=== PATIENT | female | born 2000 | race Caucasian/White ===

== ENCOUNTER 2023-11-10 10:34 | Emergency (ER) | payer SELFPAY ==
[2023-11-10 12:23] LABS: SARS-CoV-2 NAA Rapid Test Not Detected (NotDetected)
== END 2023-11-10 12:38 | disposition home or self-care (01) ==
LOC: CSHERS 10:34
DX: J06.9 Acute upper respiratory infection, unspecified (principal); F17.200 Nicotine dependence, unspecified, uncomplicated
CPT/HCPCS: 87081; 87430; 99283

== ENCOUNTER 2024-09-02 19:01 | Day surgery (SDC) | payer MEDICAID, OTHER ==
[2024-09-02 19:23] VITALS: BMI 32.5
[2024-09-02] MEDS ORDERED: hydrALAZINE 20 MG/ML VIAL SLOW IVP PRN (21:20)
== END 2024-09-02 22:15 | disposition home or self-care (01) ==
LOC: CSHLD/OP 19:01
PROVIDERS: ATTEND Family Medicine
DX: O47.1 False labor at or after 37 completed weeks of gestation (principal); O98.513 Other viral diseases complicating pregnancy, third trimester; B00.9 Herpesviral infection, unspecified; O98.813 Other maternal infectious and parasitic diseases complicating pregnancy, third trimester; B37.31 Acute candidiasis of vulva and vagina; B96.89 Other specified bacterial agents as the cause of diseases classified elsewhere; O23.593 Infection of other part of genital tract in pregnancy, third trimester; N89.8 Other specified noninflammatory disorders of vagina; Z79.82 Long term (current) use of aspirin; Z79.899 Other long term (current) drug therapy; Z3A.39 39 weeks gestation of pregnancy
CPT/HCPCS: 87480; 87510; 87660

== ENCOUNTER 2024-09-03 15:28 | Inpatient (IN) | payer MEDICAID, OTHER ==
[2024-09-03] MEDS ORDERED: hydrALAZINE 20 MG/ML VIAL SLOW IVP PRN ×3 (15:42→21:01)
[2024-09-03 16:25] VITALS: BMI 32.5
[2024-09-03] MEDS: CEFAZOLIN 2 GM VIAL ONE (16:44)
[2024-09-03 16:45] LABS: #Basophils 0.02 10x3/uL (0.0-0.2); #Eosinophils 0.01 10x3/uL (0.0-0.5); #Monocytes 1.41 10x3/uL (0.0-1.1); #Neutrophils 15.16 10x3/uL (1.5-8.4); %Basophils 0.1 % (0.0-2.0); %Eosinophils 0.1 % (0.0-6.0); %Lymphocytes 9.8 % (18.0-47.0); %Monocytes 7.6 % (0.0-10.0); %Neutrophils 81.5 % (40.0-75.0); Hematocrit 39.3 % (34.9-44.5); Hemoglobin 13.1 g/dL (12.0-15.5); Mean Corpuscular HGB CONC 33.3 g/dL (32.0-36.0); Mean Corpuscular Hemoglobin 28.5 pg (27.0-33.0); Mean Corpuscular Volume 85.4 fL (81.6-98.3); Mean Platelet Volume 8.2 fL (7.4-10.4); Platelet Count 342 10x3/uL (150-450); RBC Distribution Width 13.5 % (11.5-14.5); White Blood Cell (WBC) Count 18.6 10x3/uL (3.5-10.5)
[2024-09-03] MEDS ORDERED: Ondansetron PF 4 MG/2 ML Vial IVP PRN ×2 (16:45→17:52)
[2024-09-03] MEDS: Azithromycin 500 MG VIAL ONE (16:45)
[2024-09-03] MEDS ORDERED: Diphenoxylate HCl/Atropine Tablet PO PRN (16:45)
[2024-09-03] MEDS ORDERED: Famotidine/PF 20 mg/2ml Vial SLOW IVP PRN (16:45)
[2024-09-03] MEDS ORDERED: Oxytocin 30 units/NS 500 ML 500 ML IV SCH ×2 (16:45→21:01)
[2024-09-03] MEDS ORDERED: Bicitra 30 ML UDCUP PO PRN (16:45)
[2024-09-03] MEDS ORDERED: Tranexamic Acid 1,000 MG/10 ML VIAL IVP PRN (16:45)
[2024-09-03] MEDS ORDERED: Acetaminophen 500 MG TAB PO PRN (16:45)
[2024-09-03] MEDS ORDERED: Carboprost 250 MCG/ML AMP IM PRN (16:45)
[2024-09-03] MEDS ORDERED: Promethazine HCl 25 MG/ML VIAL IM PRN ×3 (16:45→17:52)
[2024-09-03] MEDS ORDERED: Misoprostol 200 MCG TAB PR PRN ×2 (16:45→21:01)
[2024-09-03] MEDS ORDERED: Methylergonovine 0.2 MG/ML VIAL IM PRN ×2 (16:45→21:01)
[2024-09-03] MEDS ORDERED: CEFAZOLIN 2 GM in Sodium Chloride 0.9% 100 ML IVPB SCH (16:45)
[2024-09-03] MEDS ORDERED: fentaNYL 50 mcg/mL 1 mL Vial SLOW IVP PRN (16:45)
[2024-09-03] MEDS ORDERED: Lactated Ringer's 1,000 ML IV SCH (16:45)
[2024-09-03] MEDS ORDERED: Azithromycin 500 MG in Sodium Chloride 0.9% 250 ML 250 ML IVPB SCH (17:00)
[2024-09-03 17:11] LABS: INR-International Normal Ratio 0.9; PTT 26.1 sec (22.0-33.0); Prothrombin Time 9.8 sec (9.5-12.1)
[2024-09-03 17:22] LABS: Hematocrit 38.2 % (34.9-44.5); Hemoglobin 12.5 g/dL (12.0-15.5); Mean Corpuscular HGB CONC 32.7 g/dL (32.0-36.0); Mean Corpuscular Hemoglobin 28.5 pg (27.0-33.0); Mean Platelet Volume 8.3 fL (7.4-10.4); Platelet Count 319 10x3/uL (150-450); RBC Distribution Width 13.6 % (11.5-14.5); Red Blood Cell (RBC) Count 4.39 10x6/uL (3.90-5.03); White Blood Cell (WBC) Count 19.6 10x3/uL (3.5-10.5)
[2024-09-03 17:32] LABS: Syphilis Antibody Nonreactive (Nonreactive); Syphilis Antibody Index 0.07 S/CO (<1.00 Non-Reactive)
[2024-09-03 17:37] LABS: HBsAg Index 0.19 S/CO (0-0.99); Hep B Surf Ag - L&D Non-Reactive S/CO (NonReactive)
[2024-09-03] MEDS ORDERED: Naloxone HCl 0.4 mg/ml Vial IV PRN (17:52)
[2024-09-03] MEDS ORDERED: Naloxone HCl 0.4 mg/ml Vial IVP PRN ×2 (17:52)
[2024-09-03] MEDS ORDERED: HYDROmorphone 2 MG/ML VIAL SLOW IVP PRN (17:52)
[2024-09-03] MEDS ORDERED: Moisturizing Cream (Eucerin) 113 GM JAR TOP PRN (17:52)
[2024-09-03] MEDS ORDERED: Ondansetron HCl/PF 4 MG/2 ML Vial IVP PRN (17:52)
[2024-09-03] MEDS ORDERED: Communication Order-Pharmacy FS SCH (18:00)
[2024-09-03] MEDS ORDERED: Acetaminophen 325 MG TAB PO PRN (21:01)
[2024-09-03] MEDS ORDERED: Simethicone Chewable 80 MG TAB PO PRN (21:01)
[2024-09-03] MEDS: Ketorolac Tromethamine 30 MG (1 mL) VIAL IVP PRN (21:22)
[2024-09-03] MEDS: CEFAZOLIN 2 GM in Sodium Chloride 0.9% 100 ML IVPB SCH (21:23)
[2024-09-03] MEDS: Lactated Ringer's 1,000 ML IV SCH (21:33)
[2024-09-03] MEDS: Dexmedetomidine 200 MCG/2 ML VIAL ONE (22:01)
[2024-09-03] MEDS: ePHEDrine Sulfate 50 MG/10 ML VIAL ONE (22:01)
[2024-09-03] MEDS: Morphine PF 10 MG/10 ML VIAL ONE (22:01)
[2024-09-03] MEDS: Tranexamic Acid 1,000 MG/10 ML VIAL ONE (22:02)
[2024-09-03] MEDS: PHENYLEPHRINE-NS 100 MCG/ML 10 ML SYRINGE ONE (22:02)
[2024-09-03] MEDS: Ferrous Sulfate 325 MG TAB PO SCH (22:02)
[2024-09-03] MEDS: Famotidine/PF 20 mg/2ml Vial ONE (22:02)
[2024-09-03] MEDS: Ondansetron PF 4 MG/2 ML Vial ONE (22:02)
[2024-09-03] MEDS: Docusate 100 MG CAP PO SCH (22:02)
[2024-09-03] MEDS: Oxytocin 10 UNITS/ML VIAL ONE (22:02)
[2024-09-03] MEDS: diphenhydrAMINE 50 MG/ML VIAL IVP PRN (22:59)
[2024-09-04 04:24] LABS: Hematocrit 31.2 % (34.9-44.5); Hemoglobin 10.1 g/dL (12.0-15.5); Mean Corpuscular HGB CONC 32.4 g/dL (32.0-36.0); Mean Corpuscular Hemoglobin 28.5 pg (27.0-33.0); Mean Corpuscular Volume 87.9 fL (81.6-98.3); Mean Platelet Volume 8.5 fL (7.4-10.4); Platelet Count 281 10x3/uL (150-450); RBC Distribution Width 13.6 % (11.5-14.5); Red Blood Cell (RBC) Count 3.55 10x6/uL (3.90-5.03); White Blood Cell (WBC) Count 13.7 10x3/uL (3.5-10.5)
[2024-09-04] MEDS: Ferrous Sulfate 325 MG TAB PO SCH (08:03)
[2024-09-04] MEDS: Boostrix 0.5 ML (Tdap) VIAL (>/=7 yrs of age) IM ONE (08:03)
[2024-09-04] MEDS: Prenatal Vitamin 1 TAB PO SCH (08:37)
[2024-09-04] MEDS: Docusate 100 MG CAP PO SCH (08:37)
[2024-09-04] MEDS: HYDROcodone/Acetaminophen 5/325 mg Tablet PO PRN (18:11)
[2024-09-04] MEDS ORDERED: Ibuprofen 400 MG TAB PO PRN (19:43)
[2024-09-04] MEDS: Ibuprofen 600 MG TAB PO PRN (21:45)
[2024-09-05 08:09] VITALS: BP 114/58; TEMP 97.8
[2024-09-05] MEDS: HYDROcodone/Acetaminophen 5/325 mg Tablet PO PRN (08:45)
== END 2024-09-05 19:00 | disposition home or self-care (01) | DRG 787 ==
LOC: CSHLD/OP 15:28 → CSHLD 16:42 → CSHPP 20:30
PROVIDERS: ADMIT Student in an Organized Health Care Education/Training Program; ATTEND Student in an Organized Health Care Education/Training Program
PROC: 10D00Z1 Extraction of Products of Conception, Low, Open Approach (ICD-10-PCS; principal; 2024-09-03)
DX: O45.93 Premature separation of placenta, unspecified, third trimester (principal); O98.52 Other viral diseases complicating childbirth; Z3A.39 39 weeks gestation of pregnancy; Z37.0 Single live birth; B00.9 Herpesviral infection, unspecified; O76 Abnormality in fetal heart rate and rhythm complicating labor and delivery; O77.0 Labor and delivery complicated by meconium in amniotic fluid
CPT/HCPCS: 36415; 51702; 85025; 85027; 85610; 85730; 86780; 86850; 86900; 86901; 87340; 88307; 99285; J0456; J1200; J1885; J2274; J2405; J2590; J3490